=== PATIENT | female | born 1970 | race Two or more races ===

== ENCOUNTER 2018-04-18 16:17 | Emergency (ER) | payer OTHER ==
[2018-04-18] MEDS ORDERED: NS 1,000 ML IV ONE (17:17)
[2018-04-18] MEDS ORDERED: IOPAMIDOL (ISOVUE-300) 100 ML BTL ONE (17:59)
[2018-04-18] MEDS ORDERED: HYDROCOD/APAP 5/325 PREPACK#6 BTL TAKEHOME ONE (19:11)
--- NOTE | 2018-04-18 19:12 | EDPHY ---
H & P Stated Complaint: FALL CLEANING TUB YESTERDAY/LUQ ABD/BREAST AND L RIB PAIN Time Seen by Provider: 04/18/18 16:35 HPI/ROS: Chief complaint: Left-sided chest wall and abdominal pain from fall History of present illness: This is a 47-year-old female who presents to the emergency department reporting left-sided chest wall and abdominal pain. She states she was cleaning a bathtub yesterday when she fell and struck the side of it. Since then she has had persistent pain. Worse with movement and deep breathing. She also states her neck and her back hurt. She does not believe she hit her head. There was no loss of consciousness. No report of cough, hemoptysis, trouble breathing, changes in bowel or bladder habits, neurologic symptoms such as paresthesias, weakness or paralysis or bowel or bladder dysfunction. Review of systems: A 10 point review of systems was obtained and other than described above was negative - Personal History LMP (Females 10-55): 22-28 Days Ago Current Tetanus Diphtheria and Acellular Pertussis (TDAP): Yes - Medical/Surgical History Hx Asthma: No Hx Chronic Respiratory Disease: No Hx Diabetes: No Hx Cardiac Disease: No Hx Renal Disease: No Hx Cirrhosis: No Hx Alcoholism: No Hx HIV/AIDS: No Hx Splenectomy or Spleen Trauma: No Other PMH: DENIES - Social History Smoking Status: Never smoked - Physical Exam Exam: General Appearance: Alert, nontoxic Eyes: PERRLA ENT: No hemotympanum, no edwards sign, no raccoon eyes Respiratory: Lungs clear to auscultation bilaterally. Cardiac: Regular rate and rhythm. Gastrointestinal: There is tenderness to the left upper quadrant. No guarding or other peritoneal signs. Neurological: Alert and oriented x4. Cranial nerves 2-12 grossly intact. Strength and sensation intact and symmetrical. Skin: No lesions consistent with trauma. Musculoskeletal: The head is nontender without crepitus or bony deformity. There is midline tenderness to the mid cervical, mid thoracic and lower lumbar region, no crepitus, bony deformity or step-off. Patient is moving all extremities without difficulty. She is ambulating well. Constitutional: Initial Vital Signs Temperature (C) 36.7 C 04/18/18 16:24 Heart Rate 62 04/18/18 16:24 Respiratory Rate 17 06/01/18 16:24 Blood Pressure 144/89 H 04/18/18 16:24 O2 Sat (%) 95 04/18/18 16:24 O2 Delivery Mode Room Air Allergies/Adverse Reactions: No Known Allergies Allergy (Verified 04/18/18 16:23) Home Medications: Medication Instructions Recorded NK [No Known Home Meds] 04/18/18 Medical Decision Making - Diagnostics Imaging Results: Imaging Impressions Abdomen CT 04/18/18 17:18 Impression: 1. Nondisplaced buckle fracture anterior left 5th rib. 2. No pneumothorax or pulmonary contusion. 3. No solid organ or bowel injury. Specifically, no splenic laceration. 4. No free fluid, lumbar spine, or pelvic fracture. Findings discussed with Emergency Department Physician Animal Groomer, FARA Arias , on April 18, 2018 at 1830. Cervical Spine X-Ray 04/18/18 17:18 Impression: Negative. No acute fracture or prevertebral soft tissue swelling. Ribs w/Chest X-Ray 04/18/18 17:18 Impression: Negative. No displaced rib fracture or pneumothorax. Thoracic Spine X-Ray 04/18/18 17:18 Impression: Negative. No acute thoracic spine fracture. Imaging: Discussed imaging studies w/ on call pharmacy technician Radiologist, I viewed and interpreted images myself ED Course/Re-evaluation: Patient seen under the supervision of my secondary supervising physician Dr. Won Montgomery. Patient presents for left-sided chest wall pain after a fall last night. Physical exam reveals left upper quadrant and spinal tenderness. Imaging studies are largely unremarkable. This appears to be soft tissue injury. She will be discharged home. Home care is discussed. Return precautions were given. Patient voiced understanding and agreement with plan. Differential Diagnosis: Included but not limited to contusion, sprain or strain, bony fracture, pneumo or hemothorax, intra-abdominal injury - Data Points Laboratory Results: 04/18/18 17:38 POC Hgb 15.0 gm/dL gm/dL (12.6-16.3) POC Hct 44 % % (38-47) POC Sodium 141 mEq/L mEq/L (135-145) POC Potassium 4.0 mEq/L mEq/L (3.3-5.0) POC Chloride 105 mEq/L mEq/L (97-110) POC BUN 10 mg/dL mg/dL (7-23) POC Creatinine 0.6 mg/dL mg/dL (0.6-1.0) POC Glucose 86 mg/dL mg/dL (70-100) Medications Given: Discontinued Medications Hydrocodone Bitart/Acetaminophen ([place] 5/325mg Prepack#6) 1 btl TAKEHOME EDNOW ONE Stop: 04/18/18 19:12 Last Admin: 04/18/18 19:18 Dose: 1 btl Sodium Chloride (Ns) 1,000 mls @ 0 mls/hr IV ONCE ONE; Wide Open PRN Reason: Protocol Stop: 04/18/18 17:18 Last Admin: 04/18/18 17:28 Dose: 1,000 mls Point of Care Test Results: Chemistry 04/18/18 17:38 POC Sodium 141 mEq/L mEq/L (135-145) POC Potassium 4.0 mEq/L mEq/L (3.3-5.0) POC Chloride 105 mEq/L mEq/L (97-110) POC BUN 10 mg/dL mg/dL (7-23) POC Creatinine 0.6 mg/dL mg/dL (0.6-1.0) POC Glucose 86 mg/dL mg/dL (70-100) ISTAT H&H 04/18/18 17:38 POC Hgb 15.0 gm/dL gm/dL (12.6-16.3) POC Hct 44 % % (38-47) Departure - Departure Disposition: Home, Routine, Self-Care Clinical Impression: Chest wall contusion Condition: Good Instructions: Contusion in Adults (ED) Additional Instructions: Follow-up with her primary care doctor next week for recheck In regards to pain control see the following: Use ibuprofen [600] mg [3] times a day for the next 2-3 days for pain In addition You have been prescribed [[place]] for pain. [[place]] contains Tylenol, do not take extra Tylenol/acetaminophen/Apap with it. It is sedating. You can take 1 tablet every 6 hr as needed for pain. If symptoms worsen or new symptoms develop return to the emergency room for recheck Use Ibuprogen (600) mg 3 x al mercedez por los proximos 2-3 walls para el dolor. En adicion le lechuga recetado [place] para el dolor. [place] contiene Tylenol, no tome mas Tylenol/Acetaminophen/Apap. [place] es sedante. Puede leena 1 tableta cada 6 horas a reinaldo lo necesite para el dolor. Referrals: Yolanda Brady DO [Primary Care Provider] - As per Instructions
[2018-04-18 19:52] VITALS: BP 123/78
== END 2018-04-18 19:53 | disposition home or self-care (01) ==
DX: S20.212A Contusion of left front wall of thorax, initial encounter (principal); E86.9 Volume depletion, unspecified; W18.2XXA Fall in (into) shower or empty bathtub, initial encounter
CPT/HCPCS: 82435-PO; 82565-PO; 82947-PO; 84132-PO; 84295-PO; 84520-PO; 85014-PO; Q9967